=== PATIENT | male | born 1985 | race Caucasian/White ===

== ENCOUNTER 2017-03-03 06:43 | Emergency (ER) | payer OTHER ==
[2017-03-03 06:54] VITALS: BP 138/75
--- NOTE | 2017-03-03 07:06 | ED Physician Documentation ---
PD HPI BACK INJURY - Stated complaint Stated Complaint: BACK PX - History obtained from History obtained from: Patient - History of Present Illness Location: Right, Upper Type of injury: Twist (he was working out with weights ([employer]) and felt a muscle pain abruptly as he twisted to the left with the weight. Has been hurting since. No dyspnea. Hurts with deep breathing, movement, reaching up with right arm and bending over/reaching. Pain remains infrascapular area.) Timing - onset: Yesterday Timing - details: Abrupt onset, Still present Quality: Pain, Spasm Improved by: Rest Worsened by: Moving, Palpating Associated symptoms: No: Fever, Weakness, Numbness Contributing factors: No: Work related Similar symptoms before: Has not had sx before Recently seen: Not recently seen Review of Systems Constitutional: denies: Fever, Chills Nose: denies: Rhinorrhea / runny nose, Congestion Throat: denies: Sore throat Respiratory: denies: Cough Skin: denies: Rash, Lesions Neurologic: denies: Focal weakness, Numbness PD PAST MEDICAL HISTORY - Past Medical History Past Medical History: No Cardiovascular: None Neuro: None Endocrine/Autoimmune: None GI: None : None HEENT: None Psych: None Musculoskeletal: None Derm: None - Past Surgical History Past Surgical History: Yes General: Other HEENT: Tonsil/Adenoidectomy - Present Medications Home Medications: Ambulatory Orders Medication Instructions Recorded Confirmed Dexamethasone [Decadron] 4 mg PO DAILY #5 tablet 03/03/17 HYDROcod/ACETAM 5/325 [[place] 5/325] 1 tab PO Q6H PRN #18 tablet 03/03/17 Ibuprofen [Motrin] 600 mg PO TID #30 tab 03/03/17 Methocarbamol [Robaxin] 500 mg PO Q6H PRN #25 tablet 03/03/17 - Allergies Allergies/Adverse Reactions: Allergies Allergy/AdvReac Type Severity Reaction Status Date / Time azithromycin AdvReac Nausea Verified 03/03/17 06:54 - Social History Does the pt smoke?: No Smoking Status: Never smoker Does the pt drink ETOH?: Yes Does the pt have substance abuse?: No - Immunizations Immunizations are current?: Yes - POLST Patient has POLST: No PD ED PE NORMAL - Vitals Vital signs reviewed: Yes - General General: Alert and oriented X 3, Well developed/nourished, Other (seems uncomfortable with movement of upper torso/right shoulder. ) - Neck Neck: Supple, no meningeal sign, No adenopathy - Cardiac Cardiac: RRR, No murmur - Respiratory Respiratory: Clear bilaterally - Abdomen Abdomen: Soft, Non tender - Back Back: No spinal TTP (but is tender right lower thoracic area (not in focal trigger point) at infrascapular area. No redness. No vertebral tenderness. ) - Derm Derm: Normal color, Warm and dry, No rash Results - Vitals Vitals: Vital Signs - 24 hr 03/03/17 06:51 Temperature 36.3 C L Heart Rate 64 Respiratory 17 Rate Blood Pressure 138/75 H O2 Saturation 97 Oxygen O2 Source Room air PD MEDICAL DECISION MAKING - ED course Complexity details: considered differential (seems muscle strain without red flags. ), d/w patient Departure - Departure Disposition: 01 Home, Self Care Clinical Impression: Acute thoracic myofascial strain Qualifiers: Encounter type: initial encounter Qualified Code(s): S29.019A - Strain of muscle and tendon of unspecified wall of thorax, initial encounter Condition: Stable Record reviewed to determine appropriate education?: Yes Instructions: ED Sprain Thoracic Spine Follow-Up: [facility] [Primary Care Provider] - Prescriptions: Dexamethasone [Decadron] 4 mg PO DAILY #5 tablet HYDROcod/ACETAM 5/325 [[place] 5/325] 1 tab PO Q6H PRN #18 tablet PRN Reason: Pain Ibuprofen [Motrin] 600 mg PO TID #30 tab Methocarbamol [Robaxin] 500 mg PO Q6H PRN #25 tablet PRN Reason: Spasms Comments: Physical treatment such as heat or ice to the area, gentle massage and chiropractic are all good for this. Avoid heavy lifting and push pull until this is well healed. Limited to no work for 2-3 days and then light lifting only for another 4-5 days. This typically is a reasonable timeframe for this to heal and get better without reinjury. Recheck if not well improved over the next 2-3 days.Use ibuprofen 3 times a day. Dexamethasone daily for 5 more days is also an anti-inflammatory. Methocarbamol is used for muscle spasms and stiffness. Add Tylenol or hydrocodone if needed for pain. Forms: Activity restrictions Discharge Date/Time: 03/03/17 07:42
[2017-03-03] MEDS ORDERED: DEXAMETHASONE 10 MG/ML VIAL PO STA (07:24)
[2017-03-03] MEDS ORDERED: HYDROcod/ACETAM 5/325 MG TABLET PO STA (07:24)
[2017-03-03] MEDS ORDERED: METHOCARBAMOL 500 MG TABLET PO STA (07:24)
[2017-03-03] MEDS ORDERED: CHERRY SYRUP 10 ML UDC PO ONE (07:43)
== END 2017-03-03 07:42 | disposition home or self-care (01) ==
LOC: ED 06:43
DX: S29.012A Strain of muscle and tendon of back wall of thorax, initial encounter (principal); X50.0XXA Overexertion from strenuous movement or load, initial encounter; Y93.B3 Activity, free weights
CPT/HCPCS: 99283; A9270

== ENCOUNTER 2018-02-26 08:48 | Outpatient (CLI) | payer OTHER ==
--- NOTE | 2018-02-26 12:17 | MRI Report ---
Reason: PAIN IN UNSPECIFIED KNEE Procedure Date: 02/26/2018 Accession Number: [id number] / [id number] Procedure: MRI - Knee LT W/O CPT Code: FULL RESULT: EXAM: LEFT KNEE MRI WITHOUT CONTRAST EXAM DATE: 02/26/2018 09:39 AM. CLINICAL HISTORY: Left knee pain for several months. COMPARISON: None. TECHNIQUE: Multiplanar, multisequence T1-weighted and fluid-sensitive sequences of the knee without contrast. Other: None. FINDINGS: Bones and articular cartilage: Patella thong is present. Focal grade II-III chondromalacia and subchondral marrow edema at the inferior aspect of the lateral patellar facet. The lateral trochlear inclination angle is approximately 11 degrees which is at the lower limits of normal. Slight lateral subluxation of the patella by approximately 2 mm. Medial Meniscus: There is a small linear 3 mm mildly T2 hyperintense focus at the medial aspect of the posterior horn suspicious for a focal tear. Lateral Meniscus: The lateral meniscus is intact. Cruciate Ligaments: The anterior and posterior cruciate ligaments are intact. Collateral Ligaments: The medial collateral and lateral collateral ligamentous structures are intact. Tendons: The quadriceps, patellar, and popliteus tendons are unremarkable. There is mild distal semimembranosus tendinosis. Musculature: No edema or fatty atrophy. Other: No effusion. No popliteal cyst. No loose bodies. The medial and lateral retinacula are intact. There is focal edema within the superolateral aspect of the infrapatellar fat pad. IMPRESSION: 1. Patella thong and slight lateral subluxation of the patella. 2. Borderline trochlear dysplasia. 3. Focal grade II-III chondromalacia and subchondral marrow edema at the inferior aspect of the lateral patellar facet. 4. Focal edema within the superolateral aspect of the infrapatellar fat pad which may be due to fat impingement. 5. Findings suspicious for a small 3 mm focal tear extending through the inferior surface at the posterior horn medial meniscus. [facility]CUL[facility] SECTION
== END 2018-02-26 08:49 | disposition home or self-care (01) ==
LOC: DI 08:48
PROVIDERS: ATTEND General Practice
DX: M22.8X2 Other disorders of patella, left knee (principal); M22.42 Chondromalacia patellae, left knee; R60.0 Localized edema; M22.2X1 Patellofemoral disorders, right knee

== ENCOUNTER 2018-04-21 21:01 | Emergency (ER) | payer OTHER ==
[2018-04-21] MEDS ORDERED: DEXAMETHASONE 10 MG/ML VIAL PO STA (21:23)
--- NOTE | 2018-04-21 21:26 | ED Physician Documentation ---
PD HPI SKIN - Stated complaint Stated Complaint: MALE - Chief complaint Chief Complaint: Wound - History obtained from History obtained from: Patient - History of Present Illness Timing - onset: Other (For several months now he has had an inflamed rash in his groin. [place] sounds like Diflucan a couple of rounds around [place]. That did not improve anything more recently he has been under terbinafine for a couple of weeks and has a pending dermatology referral but he is getting worse.) Review of Systems Constitutional: denies: Fever, Chills, Fatigue, Weight Loss Throat: reports: Reviewed and negative Cardiac: reports: Reviewed and negative Respiratory: reports: Reviewed and negative PD PAST MEDICAL HISTORY - Past Medical History Cardiovascular: None Endocrine/Autoimmune: None GI: None : None HEENT: None Psych: None Musculoskeletal: None Derm: None - Past Surgical History Past Surgical History: Yes General: Other HEENT: Tonsil/Adenoidectomy - Present Medications Home Medications: Ambulatory Orders Medication Instructions Recorded Confirmed Dexamethasone [Decadron] 4 mg PO DAILY #5 tablet 03/03/17 HYDROcod/ACETAM 5/325 [[place] 5/325] 1 tab PO Q6H PRN #18 tablet 03/03/17 Methocarbamol [Robaxin] 500 mg PO Q6H PRN #25 tablet 03/03/17 RX: Ibuprofen [Motrin] 600 mg PO TID #30 tab 03/03/17 RX: Triamcinolone 0.1% Oint 1 gm TOP BID #3 tube 04/21/18 [Kenalog 0.1% Oint] - Allergies Allergies/Adverse Reactions: Allergies Allergy/AdvReac Type Severity Reaction Status Date / Time erythromycin base AdvReac Nausea Verified 04/21/18 21:09 - Social History Does the pt smoke?: No Smoking Status: Never smoker Does the pt drink ETOH?: Yes Does the pt have substance abuse?: No - Immunizations Immunizations are current?: Yes - POLST Patient has POLST: No PD ED PE NORMAL - Vitals Vital signs reviewed: Yes - General General: Alert and oriented X 3, No acute distress - Back Back: No CVA TTP, No spinal TTP - Derm Derm: Other (In the intertriginous folds of the groin on both sides there is a serpiginous slightly denuded rash. No vesicles.) - Neuro Neuro: Alert and oriented X 3, Normal speech Results - Vitals Vitals: Vital Signs - 24 hr 04/21/18 04/21/18 21:05 21:32 Temperature 36.1 C L Heart Rate 61 75 Respiratory 16 17 Rate Blood Pressure 170/94 H 132/67 H O2 Saturation 99 100 Oxygen O2 Source Room air PD MEDICAL DECISION MAKING - ED course ED course: [place] tinea cruris which appears to be the most consistent diagnosis with the rash that I am seeing, however his lack of response to to appropriate antifungal agents would suggest an alternative cause. With the Jordan lamp I looked for fluorescence, there was none suggesting against erythrasma. This still could be inverse psoriasis or seborrheic dermatitis, either which should be treated with steroids, a low potency 1 which he is given a prescription for. He is encouraged to [place] and follow-up for the dermatology referral which is pending. Departure - Departure Disposition: 01 Home, Self Care Clinical Impression: Rash Condition: Good Record reviewed to determine appropriate education?: Yes Prescriptions: RX: Triamcinolone 0.1% Oint [Kenalog 0.1% Oint] 1 gm TOP BID #3 tube Comments: As discussed, the rash looks most like tinea cruris however the treatments [place] for this have been ineffective suggesting potentially against that diagnosis. There was no fluorescence with Wood's lamp suggesting against erythrasma. Still remaining would be seborrheic dermatitis or inverse psoriasis either of which should be treated with the steroid that I am giving you. Follow-up with the pack operator when the referral goes through. Return for new or worsening symptoms. Your blood pressure was elevated today on check into the emergency department. This does not mean that you have hypertension, it is a common phenomenon to come to the emergency department and have elevated blood pressure. I recommend that you see your primary care physician within the week to have it rechecked when you are feeling better. Discharge Date/Time: 04/21/18 21:34
[2018-04-21 21:34] VITALS: BP 132/67
== END 2018-04-21 21:34 | disposition home or self-care (01) ==
LOC: ED 21:01
DX: R21 Rash and other nonspecific skin eruption (principal); R03.0 Elevated blood-pressure reading, without diagnosis of hypertension
CPT/HCPCS: 99283